=== PATIENT | female | born 1990 | race Caucasian/White ===

== ENCOUNTER 2017-05-14 19:01 | Emergency (ER) | payer MEDICAID, OTHER ==
[~2017-05-14] VITALS: Ht 170.2 cm; Wt 84.0 kg
[2017-05-14] MEDS ORDERED: ACETAMINOPHEN WITH CODEINE 300/30MG TABLET PO ONE (22:45)
[2017-05-15 04:18] VITALS: BP 111/66
== END 2017-05-15 04:20 | disposition home or self-care (01) ==
LOC: ER 19:37
DX: M25.561 Pain in right knee (principal)
CPT/HCPCS: 70450; 99284; Z7610

== ENCOUNTER 2017-09-11 08:18 | Emergency (ER) | payer MEDICAID, OTHER ==
[~2017-09-11] VITALS: Ht 160 cm; Wt 63.0 kg
[2017-09-11 10:42] LABS: BASOPHILS % 0.5 % (0.0-2.0); EOSINOPHILS % 2.2 % (0.0-5.0); HEMATOCRIT. 38.7 % (36.0-48.0); HEMOGLOBIN. 12.8 g/dL (12.0-16.0); LYMPHOCYTES % 10.5 % (20.0-50.0); MEAN CORPUSCULAR HEMOGLOBIN 30.8 pg (28.0-32.0); MEAN CORPUSCULAR VOLUME 93.2 fL (81.0-99.0); MEAN PLATELET VOLUME 8.5 fl (7.4-10.4); MONOCYTES % 5.8 % (2.0-8.0); PLATELET 284 x1000/uL (130-400); RED BLOOD CELL COUNT 4.15 mill/uL (4.2-5.4); RED CELL DISTRIBUTION WIDTH 13.5 % (11.6-14.6)
[2017-09-11 10:43] LABS: CHLORIDE 105 mEq/L (98-107)
[2017-09-11 10:46] LABS: PROTHROMBIN TIME 10.6 sec (9.4-11.6)
[2017-09-11 10:51] LABS: CARBON DIOXIDE 29 mEq/L (21-32)
[2017-09-11 10:58] LABS: CLARITY URINE TURBID (CLEAR); COLOR URINE YELLOW (YELLOW); KETONES URINE NEGATIVE (NEGATIVE); LEUKOCYTE ESTERASE URINE 1+ (NEGATIVE); NITRITE URINE NEGATIVE (NEGATIVE); OCCULT BLOOD URINE NEGATIVE (NEGATIVE); PH URINE 7.5 (4.5-8.0); PROTEIN URINE NEGATIVE (NEGATIVE); SPECIFIC GRAVITY URINE 1.023 (1.005-1.030)
[2017-09-11] MEDS ORDERED: FLUCONAZOLE 100MG TABLET PO ONE (11:45)
[2017-09-11 11:52] VITALS: BP 117/75
[2017-09-11] MEDS ORDERED: FLUCONAZOLE 150MG TABLET PO NR (12:00)
== END 2017-09-11 12:04 | disposition home or self-care (01) ==
LOC: ER 08:30
DX: B37.3 Candidiasis of vulva and vagina (principal); R10.11 Right upper quadrant pain; Z90.49 Acquired absence of other specified parts of digestive tract
CPT/HCPCS: 36415; 80053; 81001; 81025; 83690; 85025; 85610; 99284